=== PATIENT | female | born 1970 ===

== ENCOUNTER 2022-03-03 05:55 | Day surgery (SDC) | payer OTHER ==
[~2022-03-03] VITALS: Ht 165.1 cm; Wt 83.0 kg
== END 2022-03-03 22:15 | disposition home or self-care (01) ==
LOC: CIR.AMB 05:55
PROVIDERS: ATTEND Plastic Surgery
DX: N62 Hypertrophy of breast (principal); E65 Localized adiposity; Z20.822 Contact with and (suspected) exposure to COVID-19; Z98.84 Bariatric surgery status; M62.08 Separation of muscle (nontraumatic), other site